=== PATIENT | female | born 1965 | race Hispanic/Latino ===

== ENCOUNTER 2018-09-18 06:24 | Emergency (ER) | payer OTHER ==
[2018-09-18 07:08] LABS: Absolute Lymphocytes (CBC) 0.6 K/uL (0.7-4.9); Basophils % 0.4 % (0-1.3); Hematocrit 34.1 % (36.0-45.0); Lymphocytes % 10.6 % (15.3-44.8); MPV 9.3 fL (7.6-11.3); RBC Red Blood Cell Count 4.43 M/uL (3.86-4.86)
[2018-09-18] MEDS ORDERED: NA CHLORIDE 0.9% 1,000 ML ONE (07:12)
[2018-09-18 07:26] LABS: Albumin 3.1 g/dL (3.4-5.0); Bilirubin Direct 0.2 mg/dL (0-0.2); Bilirubin Total 0.4 mg/dL (0.2-1.0); Potassium 3.2 mmol/L (3.5-5.1); Protein, Total 6.8 g/dL (6.4-8.2)
[2018-09-18] MEDS ORDERED: ONDANSETRON 4 MG/2 ML VIAL ONE (07:32)
[2018-09-18] MEDS ORDERED: DICYCLOMINE HCL 10 MG CAP ONE (07:32)
--- NOTE | 2018-09-18 08:10 | ER ---
Nurse's Notes [facility] Name: Keli Ross Age: 52 yrs Sex: Female : 1965 Arrival Date: 09/18/2018 Time: 06:28 Bed 7 Private MD: Leo Acosta Diagnosis: Nausea;Diarrhea, unspecified;Hypokalemia Presentation: 09/18 06:39 Presenting complaint: Patient states: she has been having diarrhea and abdominal bb cramping for 48 hours pt was recently started on Metformin a couple of months ago and stopped taking it 3 days ago. Transition of care: patient was not received from another setting of care. Onset of symptoms was September 16, 2018. Risk Assessment: Do you want to hurt yourself or someone else? Patient reports no desire to harm self or others. Initial Sepsis Screen: Does the patient meet any 2 criteria? No. Patient's initial sepsis screen is negative. Does the patient have a suspected source of infection? No. Patient's initial sepsis screen is negative. Care prior to arrival: None. 06:39 Method Of Arrival: Ambulatory bb 06:39 Acuity: WALDO 3 bb Triage Assessment: 07:00 General: Appears in no apparent distress. comfortable, obese, Behavior is calm, bp cooperative, appropriate for age. Pain: Complains of pain in abdomen. 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 - Social history:: Smoking status: Patient/guardian denies using tobacco. - Ebola Screening: : No symptoms or risks identified at this time. Screenin:44 Abuse screen: Denies threats or abuse. Nutritional screening: No deficits noted. bb Tuberculosis screening: No symptoms or risk factors identified. Fall Risk None identified. Assessment: 06:49 General: Appears uncomfortable, Behavior is appropriate for age. Pain: Complains of ea pain in abdomen. Neuro: Level of Consciousness is awake, alert, obeys commands, Oriented to person, place, time. Cardiovascular: Patient's skin is warm and dry. Respiratory: Airway is patent Respiratory effort is even, unlabored, Respiratory pattern is regular, symmetrical. GI: Reports lower abdominal pain, upper abdominal pain, nausea. 07:00 Reassessment: RECD REPORT FROM AMANDA ORTA. 52YO HF P/W ABD PAIN, NAUSEA AND VOMITING. ALL bp CURRENT ORDERS COMPLETED, RESULTS PENDING. 08:20 Reassessment: PT D/C HOME AMBULATORY, DX WITH NAUSEA AND DIARRHEA. bp Vital Signs: 06:43 BP 149 / 73; Pulse 111; Resp 16 S; Temp 98.9(O); Pulse Ox 97% on R/A; Weight 113.4 kg bb (R); Height 5 ft. 5 in. (165.10 cm) (R); Pain 8/10; 07:00 BP 138 / 106; Pulse 102; Resp 18; Pulse Ox 100% ; bp 08:11 BP 136 / 97; Pulse 98; Resp 16; Temp 98.5; Pulse Ox 99% ; bp 06:43 Body Mass Index 41.60 (113.40 kg, 165.10 cm) bb ED Course: 06:28 Patient arrived in ED. do 06:29 Leo Acosta MD is Private Physician. do 06:38 [facility]. snw 06:38 Bobo Vyas MD is Attending Physician. snw 06:41 Triage completed. bb 06:43 Arm band placed on Patient placed in an exam room, on a stretcher, on pulse oximetry. bb 06:44 Patient has correct armband on for positive identification. Placed in gown. Bed in low bb position. Call light in reach. Side rails up X 1. Pulse ox on. NIBP on. Warm blanket given. 06:59 Ihsan Shepherd, MARIVEL is Primary Nurse. bp 07:00 Inserted saline lock: 20 gauge in right antecubital area, using aseptic technique. ea Blood collected. 08:09 Leo Acosta MD is Referral Physician. snw 08:20 No provider procedures requiring assistance completed. IV discontinued, intact, bp bleeding controlled, No redness/swelling at site. Pressure dressing applied. Administered Medications: 07:00 Drug: NS 0.9% 1000 ml Route: IV; Rate: 1 bolus; Site: right antecubital; ea 08:11 Follow up: IV Status: Completed infusion; IV Intake: 1000ml bp 07:10 Drug: Bentyl 20 mg Route: PO; bp 07:45 Follow up: Response: Nausea is decreased bp 07:10 Drug: Zofran 4 mg Route: IVP; Site: right antecubital; bp 07:45 Follow up: Response: Nausea is decreased bp 07:50 Drug: Potassium Chloride 20 mEq Route: PO; bp 08:11 Follow up: Response: No adverse reaction bp Intake: 08:11 IV: 1000ml; Total: 1000ml. bp Outcome: 08:10 Discharge ordered by MD. fonseca 08:20 Discharged to home ambulatory. bp 08:20 Condition: stable 08:20 Discharge instructions given to patient, Instructed on discharge instructions, follow up and referral plans. medication usage, Demonstrated understanding of instructions, follow-up care, medications, Prescriptions given X 1. 08:21 Patient left the ED. bp Signatures: Patricia Duncan, TEMPERATURE LOGGING OPERATOR-C TEMPERATURE LOGGING OPERATOR-Csnw Maria Esther Vasquez RN RN Minoo Orozco Elena RN RN Ihsan Landry RN RN bp Corrections: (The following items were deleted from the chart) 07:05 06:00 NS 0.9% 1000 ml IV at 1 bolus in right antecubital trung nino
--- NOTE | 2018-09-18 08:11 | EDPHYS ---
Physician Documentation [facility] Name: Keli Ross Age: 52 yrs Sex: Female : 1965 Arrival Date: 09/18/2018 Time: 06:28 Bed 7 Private MD: Leo Acosta ED Physician Bobo Vyas HPI: 09/18 06:59 This 52 yrs old Female presents to ER via Ambulatory with complaints of snw Diarrhea, Nausea, Abdominal Cramping, Weakness, Headache. 06:59 The patient presents to the emergency department with nausea, diarrhea, abdominal pain, snw cramping. Onset: The symptoms/episode began/occurred suddenly, 2 day(s) ago, and became persistent. Possible causes: bad food exposure. Associated signs and symptoms: Pertinent positives: nausea, Pertinent negatives: fever, vomiting. Severity of symptoms: At their worst the symptoms were moderate in the emergency department the symptoms are unchanged. The patient has experienced similar episodes in the past, several times. The patient has not recently seen a physician. 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 - Social history:: Smoking status: Patient/guardian denies using tobacco. - Ebola Screening: : No symptoms or risks identified at this time. ROS: 06:59 Constitutional: Negative for fever, chills, and weight loss, Eyes: Negative for injury, snw pain, redness, and discharge, ENT: Negative for injury, pain, and discharge, Neck: Negative for injury, pain, and swelling, Cardiovascular: Negative for chest pain, palpitations, and edema, Respiratory: Negative for shortness of breath, cough, wheezing, and pleuritic chest pain, Back: Negative for injury and pain, : Negative for injury, bleeding, discharge, and swelling, MS/Extremity: Negative for injury and deformity, Skin: Negative for injury, rash, and discoloration, Neuro: Negative for headache, weakness, numbness, tingling, and seizure. 06:59 Abdomen/GI: Positive for abdominal pain, nausea, diarrhea. Exam: 06:59 Constitutional: This is a well developed, well nourished patient who is awake, alert, snw and in no acute distress. Head/Face: Normocephalic, atraumatic. Eyes: Pupils equal round and reactive to light, extra-ocular motions intact. Lids and lashes normal. Conjunctiva and sclera are non-icteric and not injected. Cornea within normal limits. Periorbital areas with no swelling, redness, or edema. ENT: Nares patent. No nasal discharge, no septal abnormalities noted. Tympanic membranes are normal and external auditory canals are clear. Oropharynx with no redness, swelling, or masses, exudates, or evidence of obstruction, uvula midline. Mucous membranes moist. Neck: Trachea midline, no thyromegaly or masses palpated, and no cervical lymphadenopathy. Supple, full range of motion without nuchal rigidity, or vertebral point tenderness. No Meningismus. Chest/axilla: Normal chest wall appearance and motion. Nontender with no deformity. No lesions are appreciated. Respiratory: Lungs have equal breath sounds bilaterally, clear to auscultation and percussion. No rales, rhonchi or wheezes noted. No increased work of breathing, no retractions or nasal flaring. Abdomen/GI: Soft, non-tender, with normal bowel sounds. No distension or tympany. No guarding or rebound. No evidence of tenderness throughout. Back: No spinal tenderness. No costovertebral tenderness. Full range of motion. Skin: Warm, dry with normal turgor. Normal color with no rashes, no lesions, and no evidence of cellulitis. MS/ Extremity: Pulses equal, no cyanosis. Neurovascular intact. Full, normal range of motion. Neuro: Awake and alert, GCS 15, oriented to person, place, time, and situation. Cranial nerves II-XII grossly intact. Motor strength 5/5 in all extremities. Sensory grossly intact. Cerebellar exam normal. Normal gait. Psych: Awake, alert, with orientation to person, place and time. Behavior, mood, and affect are within normal limits. 06:59 Cardiovascular: Rate: tachycardic, Rhythm: regular, Pulses: no pulse deficits are appreciated, Heart sounds: normal. Vital Signs: 06:43 BP 149 / 73; Pulse 111; Resp 16 S; Temp 98.9(O); Pulse Ox 97% on R/A; Weight 113.4 kg bb (R); Height 5 ft. 5 in. (165.10 cm) (R); Pain 8/10; 07:00 BP 138 / 106; Pulse 102; Resp 18; Pulse Ox 100% ; bp 08:11 BP 136 / 97; Pulse 98; Resp 16; Temp 98.5; Pulse Ox 99% ; bp 06:43 Body Mass Index 41.60 (113.40 kg, 165.10 cm) bb MDM: 06:38 Patient medically screened. snw 08:12 Data reviewed: vital signs, nurses notes. Data interpreted: Pulse oximetry: on room air snw is 99 %. Interpretation: normal. Counseling: I had a detailed discussion with the patient and/or guardian regarding: the historical points, exam findings, and any diagnostic results supporting the discharge/admit diagnosis, the presence of at least one elevated blood pressure reading (>120/80) during this emergency department visit, lab results, the need for outpatient follow up, to return to the emergency department if symptoms worsen or persist or if there are any questions or concerns that arise at home. Special discussion: Based on the patient's Hx, exam, and Dx evaluation, there is no indication for emergent surgery or inpatient Tx. It is understood by the patient/guardian that if the Sx's persist or worsen they need to return immediately for re-evaluation. I have referred the patient to see his PCP for further evaluation of high blood pressure. Based on the history and exam findings, there is no indication for further emergent testing or inpatient evaluation. I discussed with the patient/guardian the need to see the primary care provider for further evaluation of the symptoms. 09/18 06:52 Order name: Basic Metabolic Panel; Complete Time: 09/18 06:52 Order name: CBC with Diff; Complete Time: 09/18 06:52 Order name: Creatinine for Radiology; Complete Time: 09/18 06:52 Order name: Hepatic Function; Complete Time: 09/18 06:52 Order name: Lipase; Complete Time: 09/18 06:52 Order name: IV Saline Lock; Complete Time: 07:09/18 06:52 Order name: Labs collected and sent; Complete Time: 07:06 ea Administered Medications: 07:00 Drug: NS 0.9% 1000 ml Route: IV; Rate: 1 bolus; Site: right antecubital; ea 08:11 Follow up: IV Status: Completed infusion; IV Intake: 1000ml bp 07:10 Drug: Bentyl 20 mg Route: PO; bp 07:45 Follow up: Response: Nausea is decreased bp 07:10 Drug: Zofran 4 mg Route: IVP; Site: right antecubital; bp 07:45 Follow up: Response: Nausea is decreased bp 07:50 Drug: Potassium Chloride 20 mEq Route: PO; bp 08:11 Follow up: Response: No adverse reaction bp Disposition: 09/19 04:05 Co-signature as Attending Physician, Bobo Vyas MD I agree with the assessment and tw4 plan of care. Disposition: 09/18/18 08:10 Discharged to Home. Impression: Nausea, Diarrhea, unspecified, Hypokalemia. - Condition is Stable. - Discharge Instructions: Abdominal Pain, Adult, Food Choices to Help Relieve Diarrhea, Adult, Dehydration, Adult, Diarrhea, Adult, Nausea, Adult, Hypokalemia, Rehydration, Adult. - Prescriptions for Bentyl 20 mg Oral Tablet - take 1 tablet by ORAL route every 6 hours As needed; 20 tablet. - Work release form, Medication Reconciliation Form, Thank You Letter, Antibiotic Education, Prescription Opioid Use form. - Follow up: Leo Acosta MD; When: 1 - 2 days; Reason: Recheck today's complaints, Continuance of care, Re-evaluation by your physician. Follow up: Emergency Department; When: As needed; Reason: Worsening of condition. Signatures: Dispatcher [employer] EDMS Patricia Duncan, STATIONARY PLANT OPERATORS-C STATIONARY PLANT OPERATORS-Csnw Maria Esther Vasquez RN RN Corie Red, RN RN Ihsan Landry RN RN Bobo Jeffries MD MD tw4 Corrections: (The following items were deleted from the chart) 09/18 08:10 08:10 09/18/2018 08:10 Discharged to Home. Impression: Nausea; Diarrhea, unspecified. snw Condition is Stable. Forms are Medication Reconciliation Form, Thank You Letter, Antibiotic Education, Prescription Opioid Use. Follow up: Leo Acosta; When: 1 - 2 days; Reason: Recheck today's complaints, Continuance of care, Re-evaluation by your physician. Follow up: Emergency Department; When: As needed; Reason: Worsening of condition. marian 08:21 08:10 09/18/2018 08:10 Discharged to Home. Impression: Nausea; Diarrhea, unspecified; bp Hypokalemia. Condition is Stable. Forms are Medication Reconciliation Form, Thank You Letter, Antibiotic Education, Prescription Opioid Use. Follow up: Leo Acosta; When: 1 - 2 days; Reason: Recheck today's complaints, Continuance of care, Re-evaluation by your physician. Follow up: Emergency Department; When: As needed; Reason: Worsening of condition. marian
[2018-09-18] MEDS ORDERED: POTASSIUM 25 MEQ EFFERV TAB ONE (08:17)
== END 2018-09-18 08:21 | disposition home or self-care (01) ==
LOC: ER 06:24
DX: E87.6 Hypokalemia (principal); R19.7 Diarrhea, unspecified; E03.9 Hypothyroidism, unspecified; E11.9 Type 2 diabetes mellitus without complications
CPT/HCPCS: 36415; 80048; 80076; 83690; 85025; 96361; 96374; 99284; J2405; J7030